=== PATIENT | male | born 1985 | race Caucasian/White ===

== ENCOUNTER 2016-12-08 04:30 | Emergency (ER) | payer OTHER ==
[2016-12-08 05:15] LABS: HEMOGLOBIN 14.8 gm/dl (14.0-17.5); RED BLOOD COUNT 5.17 M/UL (4.20-5.50); WHITE BLOOD COUNT 11.9 K/UL (4.5-11.0)
[2016-12-08 05:36] LABS: BUN/CREATININE RATIO 15 (0-10)
== END 2016-12-08 14:45 | disposition home or self-care (01) ==
LOC: ER1 04:30
PROVIDERS: Family Medicine
DX: R07.89 Other chest pain (principal); M62.82 Rhabdomyolysis; I10 Essential (primary) hypertension; F17.200 Nicotine dependence, unspecified, uncomplicated; Z79.899 Other long term (current) drug therapy
CPT/HCPCS: 36415; 71010; 73564; 80053; 80307; 81001; 82550; 82553; 83874; 84484; 85025; 93005; 99285; J7030